=== PATIENT | female | born 1970 | race Caucasian/White ===

== ENCOUNTER 2020-04-11 15:02 | Outpatient (REF) | payer OTHER, SELFPAY ==
[2020-04-11 17:06] LABS: MANUAL DIFF FLAG NO
[2020-04-11 17:10] LABS: Basophils Percent Auto 0.4 % (0-2); Eosinophils Absolute Auto 0.1 X10*3/uL (0.0-0.4); Hemoglobin 14.1 g/dl (12.0-16.0); Imm Gran Abs Auto 0.01 X10*3/uL (0.00-0.03); Imm Gran Pct Auto 0.1 % (0.0-0.4); Lymphocytes Absolute Auto 2.8 X10*3/uL (1.2-4.9); Lymphocytes Percent Auto 41.1 % (20-40); Mean Corpuscular HGB Conc 33.6 g/dl (31.0-35.0); Mean Corpuscular Hemoglobin 32.4 pg (27.0-33.0); Mean Corpuscular Volume 96.6 fL (80-98); Mean Platelet Volume 11.8 fL (9.4-12.3); Monocytes Absolute Auto 0.5 X10*3/uL (0.1-1.2); Monocytes Percent Auto 6.8 % (2-11); Neutrophils Absolute Auto 3.4 X10*3/uL (2.0-8.3); Neutrophils Percent Auto 50.6 % (45-73); Platelet Count 188 X10*3/uL (160-400); Red Blood Count 4.35 X10*6/uL (4.20-5.50); Red Cell Distribution Width 13.3 % (11.0-16.0); White Blood Count 6.7 X10*3/uL (4.8-10.8)
[2020-04-11 17:55] LABS: Alanine Aminotransferase 21 U/L (0-31); Albumin Level 4.2 g/dL (3.5-5.0); Alkaline Phosphatase 53 U/L (39-117); Anion Gap 13 (12-20); Aspartate Amino Transferase 24 U/L (5-31); Bilirubin Total 0.4 mg/dL (0.0-1.0); Blood Urea Nitrogen 15 mg/dL (9-16); Carbon Dioxide 27 mmol/L (22-29); Chloride 102 mmol/L (96-108); Cholesterol 226 mg/dL; Estimated Glomerular Filt Rate > 60; Glucose Fasting 89 mg/dL (60-99); HDL Cholesterol 80 mg/dL; LDL Cholesterol Calculated 130 mg/dl; Potassium 4.2 mmol/l (3.3-5.1); Sodium 138 mmol/L (135-145); Total Protein 7.1 g/dL (6.5-8.0); Triglycerides 84 mg/dL
[2020-04-11 18:05] LABS: TSH reflex Free T4 1.08 mIU/mL (0.32-4.0)
== END 2020-04-11 15:03 | disposition home or self-care (01) ==
LOC: HO.HMGCLDS 15:02
PROVIDERS: PCP Internal Medicine; Visit Provider Internal Medicine
DX: G44.89 Other headache syndrome (principal); G47.00 Insomnia, unspecified; Z78.9 Other specified health status
CPT/HCPCS: 36415; 80053; 80061; 84443; 85025

== ENCOUNTER 2020-04-23 12:41 | Outpatient (REF) | payer OTHER, SELFPAY ==
--- NOTE | 2020-04-23 12:54 | XR_ITS ---
EXAMINATION: XR CHEST CLINICAL INFORMATION: Shortness of breath COMPARISON: None TECHNIQUE: 2 views of the chest were obtained. FINDINGS: No significant abnormality is noted involving the heart, lungs, mediastinum, bony thorax or soft tissues. XR/XR chest 2V IMPRESSION: Unremarkable chest examination.
== END 2020-04-23 12:42 | disposition home or self-care (01) ==
LOC: HO.HMGCX 12:41
PROVIDERS: PCP Internal Medicine; Visit Provider Internal Medicine
DX: R06.89 Other abnormalities of breathing (principal)
CPT/HCPCS: 71046

== ENCOUNTER 2020-05-20 10:02 | Outpatient (REF) | payer OTHER, SELFPAY ==
[2020-05-23 12:47] LABS: HPV mRNA E6/E7 Not Detected (Not Detected)
== END 2020-05-20 10:03 | disposition home or self-care (01) ==
LOC: HO.LAB 10:02
PROVIDERS: Visit Provider Obstetrics & Gynecology
DX: Z01.419 Encounter for gynecological examination (general) (routine) without abnormal findings (principal)
CPT/HCPCS: 87624; 88142

== ENCOUNTER → 2020-05-27 14:05 | Outpatient (BNVA) | payer OTHER, SELFPAY | PROVIDERS: PCP Internal Medicine; Visit Provider Nurse Practitioner Family | DX: Z76.89 Persons encountering health services in other specified circumstances (principal) ==

== ENCOUNTER → 2020-05-28 10:05 | Outpatient (BNVA) | payer OTHER, SELFPAY | PROVIDERS: PCP Internal Medicine; Visit Provider Internal Medicine Pulmonary Disease | DX: J84.9 Interstitial pulmonary disease, unspecified (principal); R06.00 Dyspnea, unspecified | CPT/HCPCS: 99202 ==

== ENCOUNTER 2020-06-05 09:01 | Outpatient (REF) | payer OTHER, SELFPAY ==
--- NOTE | 2020-06-05 09:30 | PFT_ITS ---
Forced vital capacity and FEV1 normal. MFP61-83 and MVV are also normal. Post bronchodilator therapy, there is a slight improvement in FEV1 and significant improvement in CFP82-87. Total lung capacity and residual volume normal. Diffusion capacity normal. CONCLUSION: Normal baseline pulmonary function. An increased response to bronchodilator therapy as shown in FEV1 and [id number] shows that the patient may have mild degree of bronchospasm in smaller airways. Clinical correlation is recommended. MD WILMER Rodrigues/HOLLIE / [phone]
== END 2020-06-05 09:02 | disposition home or self-care (01) ==
LOC: HO.RESP 09:01
PROVIDERS: PCP Internal Medicine; Visit Provider Internal Medicine Pulmonary Disease
DX: J84.9 Interstitial pulmonary disease, unspecified (principal)
CPT/HCPCS: 94060; 94727; 94729

== ENCOUNTER → 2020-06-07 15:45 | Outpatient (BNVA) | payer OTHER, SELFPAY | PROVIDERS: PCP Internal Medicine; Referring Provider Internal Medicine; Visit Provider Internal Medicine Pulmonary Disease | DX: R06.00 Dyspnea, unspecified (principal); J45.30 Mild persistent asthma, uncomplicated | CPT/HCPCS: 99212 ==

== ENCOUNTER 2020-07-17 10:58 | Outpatient (REF) | payer OTHER, SELFPAY ==
--- NOTE | 2020-07-17 11:02 | MM_ITS ---
EXAMINATION: MM SCREENING DIGITAL BREAST TOMOSYNTHESIS, BILATERAL CLINICAL INFORMATION: Screening. Asymptomatic. The lifetime risk of breast cancer based on the Tyrer-Cuzick Model is 6.9%. COMPARISON: Mammography: September 21, 2017 and studies dating back to February 22, 2013 TECHNIQUE: Digital breast tomosynthesis is performed in both the craniocaudal and mediolateral oblique views along with computer-aided detection (CAD). Synthesized 2D images are generated from the tomosynthesis. FINDINGS: The breasts are extremely dense, which lowers the sensitivity of mammography (ACR BI-RADS breast composition Category d). There are no significant masses, abnormal calcifications, or other abnormalities. MM/MM tomosynthesis screening BI IMPRESSION: There are no significant changes from prior study. ASSESSMENT: BI-RADS 1: Negative RECOMMENDATION: Routine annual mammography screening. This patient's information was entered into a reminder system with a target due date for their next mammogram.
== END 2020-07-17 10:59 | disposition home or self-care (01) ==
LOC: HO.MAMMO 10:58
PROVIDERS: PCP Internal Medicine; Visit Provider Internal Medicine
DX: Z12.31 Encounter for screening mammogram for malignant neoplasm of breast (principal)
CPT/HCPCS: 77063; 77067

== ENCOUNTER 2020-07-29 12:51 | Outpatient (REF) | payer OTHER, SELFPAY ==
--- NOTE | 2020-07-29 12:53 | CT_ITS ---
EXAMINATION: CT CHEST WITHOUT CONTRAST CLINICAL INFORMATION: Interstitial pulmonary disease COMPARISON: Previous chest x-ray March 2020 TECHNIQUE: Multidetector volumetric CT imaging of the chest was done. Axial MIP volume rendering provided. Sagittal and coronal reformatted images were obtained. This CT examination was performed using dose optimization techniques as appropriate, variously including the following: *Automated exposure control *Adjustment of mA and/or kV according to patient size (this includes techniques or standardized protocols for targeted exams where dose is matched to indication/reason for exam; i.e. extremities or head) *Use of iterative reconstruction technique DLP: 183 mGy-cm FINDINGS: LUNGS: There is a small 2 to 3 mm left upper lobe nodule axial image 92 series 13. This probably represents a peripheral or subpleural lymph node adjacent to an accessory left upper lobe fissure. The lungs are otherwise clear. No evidence of interstitial lung disease is seen. No evidence of emphysema or bronchiectasis is seen. There is no endobronchial or endotracheal lesion. MEDIASTINUM: There is a trace pericardial effusion or thickening seen anteriorly. The heart does not appear enlarged. There is coronary artery calcification. There are no enlarged hilar or mediastinal lymph nodes. The visualized thyroid gland is unremarkable. There may be a small esophageal hernia. PLEURA: There is no pleural effusion. No pleural mass or thickening. AXILLA: No lymphadenopathy. UPPER ABDOMEN: Unremarkable. OSSEOUS STRUCTURES: There is a mild L1 vertebral body compression fracture versus Schmorl's node. CT/CT chest wo con IMPRESSION: No evidence of interstitial lung disease. Small 2 x 3 mm left upper lobe nodule probably representing a subpleural lymph node adjacent to an accessory left upper lobe fissure.
== END 2020-07-29 12:52 | disposition home or self-care (01) ==
LOC: HO.CT 12:51
PROVIDERS: PCP Internal Medicine; Visit Provider Internal Medicine Pulmonary Disease
DX: J84.9 Interstitial pulmonary disease, unspecified (principal)
CPT/HCPCS: 71250

== ENCOUNTER 2020-08-01 09:24 | Day surgery (SDC) | payer OTHER, SELFPAY ==
[2020-07-25 14:54] VITALS: BMI 27.1
--- NOTE | 2020-07-31 08:42 | HO.ANESPROP2 ---
Documented by User: Radha Frank 07/31/20 08:44 HPI - Anesthesia Eval Consult details Narrative: 50yo F for Colon[facility] Past Medical History Medical History Asthma Compression fracture Difficulty sleeping Dyspnea Headache syndrome Muscle spasms of neck Family History Family History Father Myocardial infarction Mother Hypothyroidism Maternal Grandfather No problems noted. Maternal Grandmother COPD (chronic obstructive pulmonary disease) Smoker Paternal Grandfather Smoker Cancer Paternal Grandmother Stroke Maternal Aunt Alzheimer's disease Brother No problems noted. Sister No problems noted. Sister No problems noted. Son No problems noted. Surgical History Surgical History History of wisdom tooth extraction Social History Social History Household Members: Other Housing Other:: Rents a Room Are you a primary healthcare representative to a significant other at home: No Do you presently have visiting nurse or other home services: No Alcohol intake: current Alcohol intake frequency: holidays/special occasions only Smoking Status: Former smoker Use of substances other than those prescribed or required for medical reasons: No Have you been hit, kicked, punched, or otherwise hurt by someone within the past year? If so, by whom?: No Advance Directives: No Advance Directives Information Provided: No Advance Directives on File: No Recently lost weight without trying: No service: Yes Current occupational status: employed Current occupation: POLICY ADVISER Sexual orientation: Straight/Heterosexual Gender identity: female Meds Allergies Allergy/AdvReac Type Severity Reaction Status Date / Time ibuprofen AdvReac stomach Verified 06/07/20 15:47 upset Home Medications Medication Instructions Recorded Confirmed Type meloxicam 15 mg tablet 15 mg PO DAILY 04/23/20 07/25/20 History zolmitriptan 5 mg tablet 5 mg PO DAILY 04/23/20 07/25/20 History trazodone 1 tab PO BEDTIME 07/25/20 07/25/20 History Exam Exam Date and Time: July 31, 2020 0842 Height,Weight and Vital Signs: Height 5 ft 7 in Weight 78.471 kg Pertinent Lab Results Pertinent Lab Results: Laboratory Tests 04/11/20 04/11/20 15:15 15:15 WBC 6.7 Hgb 14.1 Hct 42.0 Plt Count 188 Sodium 138 Potassium 4.2 Chloride 102 Carbon Dioxide 27 BUN 15 Creatinine 0.94 Assessment and Plan Assessment Anesthesia Assessment: Chart Reviewed Documented by User: Shilpa Arce 08/01/20 10:21 [facility] Past Medical History Medical History Asthma Compression fracture Difficulty sleeping Dyspnea Headache syndrome Muscle spasms of neck Family History Family History Father Myocardial infarction Mother Hypothyroidism Maternal Grandfather No problems noted. Maternal Grandmother COPD (chronic obstructive pulmonary disease) Smoker Paternal Grandfather Smoker Cancer Paternal Grandmother Stroke Maternal Aunt Alzheimer's disease Brother No problems noted. Sister No problems noted. Sister No problems noted. Son No problems noted. Surgical History Surgical History History of wisdom tooth extraction Social History Social History Household Members: Other Housing Other:: Rents a Room Are you a primary healthcare representative to a significant other at home: No Do you presently have visiting nurse or other home services: No Alcohol intake: current Alcohol intake frequency: holidays/special occasions only Smoking Status: Former smoker Use of substances other than those prescribed or required for medical reasons: No Have you been hit, kicked, punched, or otherwise hurt by someone within the past year? If so, by whom?: No Advance Directives: No Advance Directives Information Provided: No Advance Directives on File: No Recently lost weight without trying: No service: Yes Current occupational status: employed Current occupation: POLICY ADVISER Sexual orientation: Straight/Heterosexual Gender identity: female Meds Allergies Allergy/AdvReac Type Severity Reaction Status Date / Time ibuprofen AdvReac stomach Verified 06/07/20 15:47 upset Home Medications Medication Instructions Recorded Confirmed Type meloxicam 15 mg tablet 15 mg PO DAILY 04/23/20 07/25/20 History zolmitriptan 5 mg tablet 5 mg PO DAILY 04/23/20 07/25/20 History trazodone 1 tab PO BEDTIME 07/25/20 07/25/20 History Exam Airway Mallampati Class: I TM Dist: >3cm Neck ROM: Full Denture: Upper Loose/Missing/Broken Teeth: No Heart: RRR Lungs: CTA Assessment and Plan Assessment Anesthesia Assessment: Anesthesia Plan Discussed and Chart Reviewed Final Anesthetic Review NPO: Yes ASA Class: II Final Preanesthetic Review: Meds/Allgs Chart Reviewed, Consent Obtained/Reviewed and Anes Risks/Benef Reviewed Patient Risk: Low Procedure Risk: Low Anesthetic Plan Anesthetic Plan: MAC: Disposition: Standard PACU
[2020-08-01 10:01] VITALS: BP 120/79; PULSE 68; RESP 16; TEMP 36.3; O2SAT 99
[2020-08-01] MEDS: Lactated Ringers 1,000 ML 100 ML IVCONT (10:11)
--- NOTE | 2020-08-01 10:21 | MHC.SHP ---
Pre-Procedural Eval Section B Chief Complaint: Screening Details of Present Illness: COLON CANCER SCREENING- brother with 5-7 polyps--no path yet\ ??new dx of asthma--seeing Pulmonary Relevant Family History (Specify if Yes): Yes Relevant Social History: None Present Medications: see Short Stay Collaborative assessment Medical History: Significant History (Asthma) History of Previous Operations: Relevant previous surgery/procedure and date(s) (no relevant surg) Allergies: Allergies Allergy/AdvReac Type Severity Reaction Status Date / Time ibuprofen AdvReac stomach Verified 06/07/20 15:47 upset Review of Systems Sugical H&P ROS: Negative: Constitution, Cardiovascular, Gastrointestinal, Musculoskeletal and Endocrine and Yes, Specify: Respiratory (dyspnea--new asthma) Exam Surgical H&P Exam: Normal: HEENT, Normal: Heart, Normal: Lungs, Normal: Extremities and Normal: Abdomen Plan Diagnosis/Plan: Unchanged I have reviewed the history and physical and performed a pertinent physical examination on my patient. No changes have occurred unless specified.--yes
--- NOTE | 2020-08-01 10:24 | PM.PROC ---
Brief Operative Note Date of procedure: 08/01/20 Pre-op diagnosis: colon cancer screening--brother with polyps Post-op diagnosis: other (Normal exam) Procedure: COLONOSCOPY Findings: MAYCO=tpne, wnl PREP: GOOD Scope easily advanced from rectum to cecum--AO/Valve normal; slow rotational views on withdrawing scope--NO polyps, no mucosal changes, ARV clear REPEAT SCREEING 5 YR DUE TO BROTHER WITR HX OF POLYPS. Anesthesia: MAC (SRINI RODRIGUEZ) Surgeon: Mali Tompkins Estimated blood loss (mL): 0 Pathology: none sent Condition: stable Disposition: PACU
--- NOTE | 2020-08-01 10:38 | HO.POSTANES ---
Post Anesthesia Evaluation Post Anesthesia Evaluation Vital Signs: Vital Signs Temp Pulse Resp BP Pulse Ox 08/01/20 10:01 97.4 F 68 16 120/79 99 Anesthesia: Monitored Mental Status: Awake Pain Control: Satisfactory Nausea/Vomiting: None Hydration: Adequate Anesthesia-Related Issues: No Anes. Related Issues
[2020-08-01 10:52] VITALS: BP 114/69; PULSE 71; RESP 12; TEMP 36.3; O2SAT 97
[2020-08-01 11:07] VITALS: BP 116/81; PULSE 67; RESP 16; O2SAT 99
--- NOTE | 2020-08-01 11:21 | PC.NURSE ---
1115 AWAKE ALERT STS READY NOW MONITORS AND IVF DCD ASST OOB CH STEADY ENC TO DRINK MORE FLUIDS WHEN HOME SECONDARY TO IV INTAKE 300, DRESSED SELF AT BS CALL CATHERINE IN REACH, PLAN TO AMB TO DC
--- NOTE | 2020-08-01 11:43 | HO.POSTANES ---
Post Anesthesia Evaluation Post Anesthesia Evaluation Vital Signs: Vital Signs Temp Pulse Resp BP Pulse Ox 08/01/20 11:07 97.4 F 67 16 116/81 99 08/01/20 10:52 97.4 F 71 12 114/69 97 08/01/20 10:01 97.4 F 68 16 120/79 99 Anesthesia: Monitored Mental Status: Awake Pain Control: Satisfactory Nausea/Vomiting: None Hydration: Adequate Anesthesia-Related Issues: No Anes. Related Issues
--- NOTE | 2020-12-26 11:06 | W.PM.OPN ---
Operative Note Operative Note Date of Service: 08/01/20 Narrative: Procedure NoteSigned Patient: Nellie NielsenMR#: [id number]: [id number]:[id number]/Sex: 50 / FADM Date: 08/01/20Loc:[facility] Attending Dr: Mali Tompkins MD cc: ~ Operative Note Date of procedure: 08/01/20 Pre-op diagnosis: colon cancer screening--brother with colonic polyps Post-op diagnosis: other (Normal exam) Procedure: COLONOSCOPY Findings: MAYCO:sphincter tone normal PREP: GOOD Scope easily advanced from rectum to cecum: Prep Good.-Appendicial orifice/ileocecal Valve normal Slow rotational views on withdrawing scope--NO polyps, no mucosal changes, Anal Rectal Verge visualized and clear. PLAN:REPEAT SCREEING 5 YR DUE TO BROTHER WITR HX OF POLYPS. Anesthesia: MAC (SRINI RODRIGUEZ) Surgeon: Mali Tompkins Estimated blood loss (mL): 0 Pathology: none sent Condition: stable Disposition: PACU Patient will be resee in our office to review results and plan.
== END 2020-08-01 11:50 ==
LOC: HO.SSS 09:25
PROVIDERS: Visit Provider Internal Medicine Gastroenterology
PROC: 0DJD8ZZ Inspection of Lower Intestinal Tract, Via Natural or Artificial Opening Endoscopic (ICD-10-PCS; CPT 45378; principal; 2020-08-01 11:10)
DX: Z12.11 Encounter for screening for malignant neoplasm of colon (principal); J45.909 Unspecified asthma, uncomplicated; G44.89 Other headache syndrome; Z87.891 Personal history of nicotine dependence; Z79.899 Other long term (current) drug therapy
CPT/HCPCS: 45378

== ENCOUNTER → 2020-08-06 15:19 | Outpatient (BNVA) | payer OTHER, SELFPAY | PROVIDERS: PCP Internal Medicine; Visit Provider Nurse Practitioner Family ==

== ENCOUNTER 2020-10-22 14:33 | Outpatient (REF) | payer OTHER, SELFPAY ==
[2020-10-22 15:44] LABS: MANUAL DIFF FLAG NO
[2020-10-22 15:51] LABS: Basophils Percent Auto 0.6 % (0-2); Eosinophils Absolute Auto 0.1 X10*3/uL (0.0-0.4); Hematocrit 43.2 % (37-47); Hemoglobin 14.3 g/dl (12.0-16.0); Imm Gran Abs Auto 0.01 X10*3/uL (0.00-0.03); Imm Gran Pct Auto 0.2 % (0.0-0.4); Lymphocytes Absolute Auto 2.8 X10*3/uL (1.2-4.9); Lymphocytes Percent Auto 43.6 % (20-40); Mean Corpuscular HGB Conc 33.1 g/dl (31.0-35.0); Mean Corpuscular Volume 93.7 fL (80-98); Mean Platelet Volume 11.3 fL (9.4-12.3); Monocytes Absolute Auto 0.4 X10*3/uL (0.1-1.2); Monocytes Percent Auto 6.8 % (2-11); Neutrophils Percent Auto 46.8 % (45-73); Platelet Count 187 X10*3/uL (160-400); Red Blood Count 4.61 X10*6/uL (4.20-5.50); Red Cell Distribution Width 13.2 % (11.0-16.0); White Blood Count 6.4 X10*3/uL (4.8-10.8)
== END 2020-10-22 14:34 | disposition home or self-care (01) ==
LOC: HO.LAB 14:33
PROVIDERS: PCP Internal Medicine; Visit Provider Internal Medicine Pulmonary Disease
DX: J45.30 Mild persistent asthma, uncomplicated (principal); Z91.09 Other allergy status, other than to drugs and biological substances
CPT/HCPCS: 36415; 85025; 99212